=== PATIENT | female | born 1985 | race Hispanic/Latino ===

== ENCOUNTER 2021-06-03 07:58 | Outpatient (CLI) | payer OTHER ==
--- NOTE | 2021-06-03 09:55 | XRay Report ---
XR chest routine 2V INDICATION / CLINICAL INFORMATION: FOR PRE OP. COMPARISON: None available. FINDINGS: SUPPORT DEVICES: None. HEART /PULMONARY VASCULATURE: No significant abnormality. LUNGS / PLEURA: No significant pulmonary or pleural abnormality. No pneumothorax. ADDITIONAL FINDINGS: No significant additional findings. IMPRESSION: 1. No acute findings. Signer Name: Bran Jalloh MD Signed: 06/03/2021 9:51 AM Workstation Name: [id number]
[2021-06-03 10:22] LABS: Hematocrit 38.6 % (30.3-42.9); Hemoglobin 12.8 gm/dl (10.1-14.3); Mean Corpuscular HGB Conc 33 % (30-34); Mean Corpuscular Volume 91 fl (79-97); Platelet Count 251 K/mm3 (140-440); Red Blood Count 4.24 M/mm3 (3.65-5.03); Red Cell Distribution Width 13.5 % (13.2-15.2)
[2021-06-03 10:33] LABS: Alanine Aminotransferase 8 units/L (7-56); Blood Urea Nitrogen 14 mg/dL (7-17); Calcium 9.6 mg/dL (8.4-10.2); Chol/HDL Ratio 3.16 %; HDL Cholesterol 53 mg/dL (40-59); Hemolysis Index 3; INR 0.93 (0.87-1.13); LDL Cholesterol,Direct 114 mg/dL (50-130); Partial Thromboplastin Time 29.1 Sec. (24.2-36.6)
[2021-06-03 10:44] LABS: BUN/Creatinine Ratio 20
[2021-06-03 10:59] LABS: ABG HCO3 22.6 mmol/L (20.0-26.0); ABG Methemoglobin 0.4 % (0.0-1.5); ABG Oxygen Saturation 97.7 % (95.0-99.0); ABG PCO2 38.1 mm Hg; ABG PH 7.391 pH Units (7.350-7.450); ABG PO2 102.6 mm Hg (80.0-90.0)
--- NOTE | 2021-06-04 23:50 | Pulmonary Function Test ---
DATE OF VISIT: 06/03/2021 SPIROMETRY: FVC 4.37 liters, which is 109% of the predicted. FEV1 is 3.78 liters, which is 115% of the predicted. FEV1/FVC ratio is 86. Flow volume loop. The FEF of 25-75% is 4.46 liters per second, which is 132% of the predicted. DLCO is 4.31, which is 116% of the predicted and inspiratory capacity is 3.43, which is 143% of the predicted. Slow vital capacity is 4.49, which is 120% of the predicted. IMPRESSION: Normal spirometry with a normal DLCO and normal slow vital capacity and inspiratory capacity. The MVV is only 49% of the predicted and probably is related to the patient's effort. TID: [id number] RECEIPT: [id number] GAETANO
--- NOTE | 2021-06-18 06:42 | Pulmonary Function Test ---
DATE OF VISIT: 06/03/2021 SPIROMETRY: FVC 4.37 liters, which is 109% of the predicted. FEV1 is 3.78, which is 115% of the predicted. FEV1/FVC ratio is 86%. Flow volume loop. The FEF 20% is 4.48, which is 132% of the predicted. Slow vital capacity 4.31 liters, which is 116% of the predicted. Inspiratory capacity 3.43 liters, which is 143% of the predicted. IMPRESSION: Normal pulmonary function test. TID: [id number] RECEIPT: [id number] ANGELO/CHLEE/KIRILL
== END 2021-06-03 07:59 | disposition home or self-care (01) ==
LOC: PF 07:58
PROVIDERS: ATTEND Internal Medicine
DX: S19.9XXA Unspecified injury of neck, initial encounter (principal); J45.909 Unspecified asthma, uncomplicated; J18.9 Pneumonia, unspecified organism; M19.90 Unspecified osteoarthritis, unspecified site; F32.9 Major depressive disorder, single episode, unspecified; J32.9 Chronic sinusitis, unspecified; X58.XXXA Exposure to other specified factors, initial encounter; Y93.89 Activity, other specified; Y92.89 Other specified places as the place of occurrence of the external cause; Y99.8 Other external cause status
CPT/HCPCS: 36415; 36600; 71046; 80053; 80061; 82803; 84436; 84443; 85027; 85610; 85730; 94010; 94729